=== PATIENT | male | born 1970 | race Caucasian/White ===

== ENCOUNTER 2021-01-04 11:19 | Emergency (ER) | payer BC ==
[~2021-01-04] VITALS: Ht 188 cm; Wt 122.7 kg
[2021-01-04 12:48] LABS: BASO % 0.2 % (0.0-2.0); EOS # 0.2 (0.0-0.7); GRAN # 6.4 (1.4-6.5); HEMATOCRIT 44.5 % (42.0-52.0); HEMOGLOBIN 14.8 g/dl (13.5-18.0); LYMPH # 1.5 (1.2-3.4); MEAN CELL VOLUME 88 fl (80.0-100.0); MEAN CORPUSCULAR HEMOGLOBIN 29 pg (27.0-31.0); MEAN CORPUSCULAR HGB CONC 33 g/dl (33.0-37.0); MONO # 0.8 (0.1-0.6); MONO % 8.5 % (1.7-9.3); PLATELET COUNT 214 K/mm3 (130-400); RED BLOOD COUNT 5.08 M/mm3 (4.20-5.60); REDCELL DISTRIBUTION WIDTH-CV 13.1 % (11.5-14.5)
[2021-01-04 12:57] LABS: ALBUMIN 4.1 gm/dL (3.5-5.0); BILIRUBIN,TOTAL 0.5 mg/dL (0.0-1.0); CALCIUM 9.4 mg/dL (8.4-10.2); CREATININE, serum 0.71 (0.66-1.25); POTASSIUM 4.5 mmol/L (3.4-5.0); TOTAL PROTEIN 7.7 gm/dL (6.4-8.2)
[2021-01-04] MEDS ORDERED: ELIQUIS 5MG PO (14:05)
[2021-01-04 15:21] VITALS: BP 176/74; PULSE 77; TEMP 97.7
[2021-01-06] MEDS ORDERED: ELIQUIS 5MG PO (09:04)
== END 2021-01-04 14:34 | disposition home or self-care (01) ==
LOC: COL.ER 11:19
PROVIDERS: Nurse Practitioner
DX: M79.661 Pain in right lower leg (principal); M79.89 Other specified soft tissue disorders; W55.12XA Struck by horse, initial encounter

== ENCOUNTER → 2021-01-06 | Outpatient (CLI) | payer BC ==
[~2021-01-06] MED LIST: ELIQUIS 5MG PO
== END ==
LOC: COL.VAS 07:59
DX: I82.461 Acute embolism and thrombosis of right calf muscular vein (principal); I82.411 Acute embolism and thrombosis of right femoral vein